=== PATIENT | female | born 1960 | race Caucasian/White ===

== ENCOUNTER → 2017-03-07 | Emergency (ER) | payer SELFPAY ==
[~2017-03-07] MED LIST: MORPHINE SULFATE 4 MG/ML, 1ML ONE; ONDANSETRON 2MG/ML, 2ML ONE
[2017-03-08 13:48] LABS: IS PT STATUS REG ER OR PRE ER? YES
[2017-03-08 13:56] LABS: BLOOD UREA NITROGEN 15 mg/dL (7-18); IS PT STATUS REG ER OR PRE ER? YES
== END ==
LOC: ED 07:15
DX: R07.2 Precordial pain (principal); J44.9 Chronic obstructive pulmonary disease, unspecified; I25.2 Old myocardial infarction; Z88.0 Allergy status to penicillin; Z87.891 Personal history of nicotine dependence; Z88.8 Allergy status to other drugs, medicaments and biological substances
CPT/HCPCS: 36415; 71010; 80048; 82040; 84484; 85025; 93005; 99285